=== PATIENT | male | born 1975 | race African-American/Black ===

== ENCOUNTER → 2018-06-24 | Outpatient (CLI) | payer OTHER ==
--- NOTE | 2018-06-24 08:29 | US ---
EXAMINATION TYPE: US abdomen complete DATE OF EXAM: 06/24/2018 COMPARISON: NONE CLINICAL HISTORY: R10.11 RUQ pain R68.89 Abnormal Clinical findings. Palpable superficial lump for 1 year changes in size large body habitus palpable area 2.2 x 4.2 x 2.1 cm during valsalva no change superficial area EXAM MEASUREMENTS: Liver Length: 15.4 cm Gallbladder Wall: 0.1 cm CBD: 0.2 cm Spleen: 9.8 cm Right Kidney: 10.3 x 4.0 x 3.5 cm Left Kidney: 8.6 x 4.5 x 6.2 cm Pancreas: Tail obscured by overlying bowel gas Liver: fatty liver Gallbladder: wnl Evidence for sonographic Mercedes's sign: No CBD: wnl Spleen: wnl Right Kidney: wnl Left Kidney: Obscured by overlying bowel gas limited smaller in size Upper IVC: wnl Abd Aorta: wnl IMPRESSION: 1. Increased echo pattern to the liver is nonspecific and be seen with fatty infiltration, hepatocell ular disease or hepatitis.
== END | disposition home or self-care (01) ==
LOC: RADUSWWP 07:16
PROVIDERS: ATTEND Internal Medicine
DX: R93.2 Abnormal findings on diagnostic imaging of liver and biliary tract (principal); R10.11 Right upper quadrant pain; R19.01 Right upper quadrant abdominal swelling, mass and lump
CPT/HCPCS: 76700